=== PATIENT | male | born 1965 | race Caucasian/White ===

== ENCOUNTER 2019-01-21 09:46 | Emergency (ER) | payer OTHER ==
[~2019-01-21] VITALS: Ht 167.6 cm; Wt 68.9 kg
== END 2019-01-21 14:41 | disposition home or self-care (01) ==
LOC: ER 09:46
DX: R53.1 Weakness (principal); R20.0 Anesthesia of skin

== ENCOUNTER 2019-12-25 21:40 | Emergency (ER) | payer OTHER ==
[~2019-12-25] VITALS: Ht 167.6 cm; Wt 68.9 kg
[2019-12-26] MEDS ORDERED: MECLIZINE HCL25 MG PO (01:11)
== END 2019-12-26 03:18 | disposition home or self-care (01) ==
LOC: ER 21:40
DX: R42 Dizziness and giddiness (principal); G43.909 Migraine, unspecified, not intractable, without status migrainosus

== ENCOUNTER 2021-03-19 10:46 | Emergency (ER) | payer OTHER ==
[~2021-03-19] VITALS: Ht 167.6 cm; Wt 66.7 kg
[~2021-03-19 10:46] MED LIST: MECLIZINE HCL25 MG PO
== END 2021-03-19 14:50 | disposition home or self-care (01) ==
LOC: ER 10:46
DX: M79.18 Myalgia, other site (principal); R07.89 Other chest pain

== ENCOUNTER 2023-07-18 10:15 | Emergency (ER) | payer OTHER ==
[~2023-07-18] VITALS: Ht 167.6 cm; Wt 57.2 kg
[2023-07-18] MEDS ORDERED: PROAIR RESPICL90 MCG IH (11:04)
[2023-07-18] MEDS ORDERED: GLUMETZA500 MG PO (11:05)
[2023-07-18] MEDS ORDERED: GEMFIBROZIL600 MG PO (11:05)
[2023-07-18] MEDS ORDERED: ZESTRIL2.5 MG PO (11:05)
== END 2023-07-18 12:36 | disposition home or self-care (01) ==
LOC: ER 10:15
DX: K05.10 Chronic gingivitis, plaque induced (principal)